=== PATIENT | female | born 2005 ===

== ENCOUNTER 2024-08-08 06:06 | Inpatient (IN) | payer OTHER ==
[2024-08-01 08:48] LABS: HEMATOCRIT 36.8 % (36.0-45.00); HEMOGLOBIN 12.2 g/dL (12.0-15.00); MEAN CELL VOLUME 79.4 fL (80.00-100.00); MEAN CORPUSCULAR HEMOGLOBIN 26.3 pg (27.00-32.0); MEAN CORPUSCULAR HGB CONC 33.1 g/dl (32.0-36.0); PLATELET COUNT 281 K/uL (150-450); RED BLOOD COUNT 4.64 M/uL (4.00-6.00); RED CELL DISTRIBUTION WIDTH 13.7 % (11.5-14.5)
[2024-08-01 09:04] LABS: PH,URINE 6.5 (5.0-8.0); URINE APPEARANCE Clear; URINE BILIRRUBIN Negative (NEGATIVE); URINE BLOOD Negative; URINE COLOR Yellow; URINE GLUCOSE Negative (NEGATIVE); URINE KETONE Negative (NEGATIVE); URINE LEUKOCYTE Negative; URINE NITRATE Negative; URINE PROTEIN Negative (NEGATIVE); URINE UROBILINOGEN 0.2 E.U./dl
[2024-08-01 09:09] LABS: URINE BACTERIA 1626.5 uL (0.0-1933); URINE RBC 8.5 uL (0.0-20.8); URINE WBC 5.7 uL (0.0-23.2)
[2024-08-01 09:26] LABS: INR 1.07; PARTIAL THROMBOPLASTIN TIME 30.7 SECONDS (22.0-34.0); PROTHROMBIN TIME 11.6 SECONDS (9.0-11.5)
[2024-08-01 09:40] LABS: CALCIUM 9.1 mg/dL (8.5-10.1); CREATININE SERUM 0.49 mg/dL (0.55-1.02); GFR 162.69; POTASSIUM 4.04 mEq/L (3.5-5.1)
[~2024-08-08] VITALS: Ht 157.5 cm; Wt 179.6 kg
[~2024-08-08 06:06] MED LIST: LEVOTHYROXINE25 MCG PO
[2024-08-08] MEDS ORDERED: OXYMETAZOLINE HCL 15 ML NASAL DROPS NASAL SCH (11:15)
[2024-08-08] MEDS ORDERED: DEXAMETHASONE SODIUM PHOSPHATE 4 MG/ML VIAL IJ SCH (11:15)
[2024-08-08] MEDS ORDERED: MORPHINE SULFATE 4 MG/ML VIAL IV SCH (13:00)
[2024-08-08] MEDS ORDERED: MORPHINE SULFATE 4 MG,MORPHINE SULFATE 1 MG IV SCH (13:00)
[2024-08-08] MEDS ORDERED: ONDANSETRON HCL 2 MG/ML VIAL IV PRN (13:00)
[2024-08-08] MEDS ORDERED: SODIUM CHLORIDE 0.45 % 1,000 ML IV SCH (13:00)
[2024-08-08] MEDS ORDERED: MORPHINE SULFATE 4 MG/ML VIAL IV ONE (14:50)
[2024-08-08 17:33] VITALS: BP 136/80
[2024-08-08 17:49] VITALS: BP 136/80; O2SAT 99
[2024-08-08] MEDS ORDERED: PANTOPRAZOLE SODIUM 40 MG/VIAL VIAL IV PUSH SCH (21:00)
[2024-08-09 00:42] VITALS: BP 113/73; O2SAT 97
[2024-08-09 08:25] VITALS: BP 108/71; O2SAT 95
== END 2024-08-09 14:06 | disposition home or self-care (01) | DRG 145 ==
LOC: CIR.AMB 06:06 → SURH 13:36 → O/R 13:36 → SURH 14:56
PROVIDERS: ADMIT Otolaryngology; ATTEND Otolaryngology
PROC: 0CBPXZZ Excision of Tonsils, External Approach (ICD-10-PCS; 2024-08-08)
PROC: 0CBQXZZ Excision of Adenoids, External Approach (ICD-10-PCS; principal; 2024-08-08 12:30)
DX: J35.03 Chronic tonsillitis and adenoiditis (principal); G47.33 Obstructive sleep apnea (adult) (pediatric); Z20.822 Contact with and (suspected) exposure to COVID-19